=== PATIENT | male | born 1945 | race Two or more races ===

== ENCOUNTER 2025-02-07 16:34 | Emergency (ER) | payer OTHER, MEDICAID ==
[~2025-02-07] VITALS: Ht 167.6 cm; Wt 60.5 kg
--- NOTE | 2025-02-07 17:14 | ED.PDOC ---
GI ASSESSMENT HPI Comments This is a 79 year old male BIB presenting to the ED with chief complaint of abdominal pain. reports that the patient has been experiencing RLQ abdominal pain with associated hemoptysis for the past 2 days. relays patient has a right inguinal hernia, however, they were advised by an urgent care today to come into the ED for further evaluation. Patient denies any SOB, dizziness, N/V/D, chest pain, cough, sore throat, or fever. Chief Complaint: Abdominal Pain Time Seen by MD: 17:12 Reviewed Notes: Nurses Notes, Medications, Allergies Allergies: Coded Allergies: NO KNOWN ALLERGIES (Unverified , 02/07/25) Information Source: Patient, Spouse Mode of Arrival: Ambulatory Timing: Days Duration: Since onset Prehospital treatment: None Quality: Sharp Vomitus: None Stool: Normal Severity: Moderate Recent: None Recent Hx of: None Pain Location: RLQ Modifying Factors: Nothing Associated sign and symptoms: Abdominal Pain Past Medical History PAST MEDICAL HISTORY: Dementia Surgical History: Denies all surgeries Family History Family History: Reviewed,noncontributory to illness Social History Smoker: Non-Smoker Alcohol: Denies ETOH Use Drugs: Denies Drug Use Lives In: Home Constitutional: denies: chills, diaphoresis, fatigue, fever, malaise, sweats, weakness, others EENTM: denies: blurred vision, double vision, ear bleeding, ear discharge, ear drainage, ear pain, ear ringing, eye pain, eye redness, hearing loss, mouth pain, mouth swelling, nasal discharge, nose bleeding, nose congestion, nose pain, photophobia, tearing, throat pain, throat swelling, voice changes, others Respiratory: reports: hemoptysis; denies: cough, orthopnea, SOB at rest, shortness of breath, SOB with excertion, stridor, wheezing, others Cardiovascular: denies: chest pain, dizzy spells, diaphoresis, Dyspnea on exertion, edema, irregular heart beat, left arm pain, lightheadedness, palpitations, PND, syncope, others Gastrointestinal: reports: abdominal pain; denies: abdomen distended, blood streaked bowels, constipated, diarrhea, dysphagia, difficulty swallowing, hematemesis, melena, nausea, poor appetite, poor fluid intake, rectal bleeding, rectal pain, vomiting, others Genitourinary: denies: burning, dysuria, flank pain, frequency, hematuria, incontinence, penile discharge, penile sore, pain, testicle pain, testicle swelling, urgency, others Neurological: denies: dizziness, fainting, headache, left sided numbness, left sided weakness, numbness, paresthesia, pre-existing deficit, right sided numbness, right sided weakness, seizure, speech problems, tingling, tremors, weakness, others Musculoskeletal: denies: back pain, gout, joint pain, joint swelling, muscle pain, muscle stiffness, neck pain, others Integumetry: denies: bruises, change in color, change in hair/nails, dryness, laceration, lesions, lumps, rash, wounds, others Allergic/Immunocompromised: denies: Difficulty Healing, Frequent Infections, Hives, Itching, others Hematologic/Lymphatic: denies: anemia, blood clots, easy bleeding, easy bruising, swollen glands, others Endocrine: denies: excessive hunger, excessive sweating, excessive thirst, excessive urination, flushing, intolerance to cold, intolerance to heat, unexplained weight gain, unexplained weight loss, others Psychiatric: denies: anxiety, bipolar disorder, depression, hopeless, panic disorder, schizophrenia, sleepless, suicidal, others All Other Systems: Reviewed and Negative Physical Exam General Appearance: No Apparent Distress, Normal HEENT: Normal ENT Inspection, Pharynx Normal, TMs Normal Neck: Full Range of Motion, Non-Tender, Normal, Normal Inspection Respiratory: Chest Non-Tender, Lungs Clear, No Accessory Muscle Use, No Respiratory Distress, Normal Breath Sounds Cardiovascular: No Edema, No JVD, No Murmur, No Gallop, Normal Peripheral Pulses, Regular Rate/Rhythm Breast Exam: Deferred Gastrointestinal: No Organomegaly, No Pulsatile Mass, Normal Bowel Sounds, Soft, Tenderness (RLQ abdominal tenderness) Genitalia: Deferred Pelvic: Deferred Rectal: Deferred Extremities: No calf tenderness, Normal capillary refill, Normal inspection, Normal range of motion, Non-tender, No pedal edema Musculoskeletal : Apperance: Normal Neurologic: Alert, 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 Was a procedure done?: No GI differential Dx Differential Diagnosis: Bowel Obstruction, Dysmenorrhea, Gastritis/PUD, Gastroenteritis X-Ray, Labs, Meds, VS Vital Signs Date Time Temp Pulse Resp B/P (MAP) Pulse Ox O2 Delivery O2 Flow Rate FiO2 02/07/25 19:47 98.0 83 14 112/57 (75) 96 98.0 02/07/25 16:41 97.6 66 16 125/54 96 97.6 Lab Test 02/07/25 17:46 Range/Units White Blood Count 7.7 4.4-10.8 10^3/uL Red Blood Count 4.56 4.5-5.90 10^6/uL Hemoglobin 11.5 L 13.5-17.5 g/dL Hematocrit 35.9 L 41.0-53.0 % Mean Corpuscular Volume 78.6 L 80.0-100.0 fL Mean Corpuscular Hemoglobin 25.3 L 28.0-32.0 pg Mean Corpuscular Hemoglobin Concent 32.1 32.0-36.0 g/dL Red Cell Distribution Width 15.8 H 11.8-14.3 % Platelet Count 167 140-450 10^3/uL Mean Platelet Volume 7.9 6.9-10.8 fL Neutrophils (%) (Auto) 80.9 H 37.0-80.0 % Lymphocytes (%) (Auto) 9.6 L 10.0-50.0 % Monocytes (%) (Auto) 8.2 0.0-12.0 % Eosinophils (%) (Auto) 0.6 0.0-7.0 % Basophils (%) (Auto) 0.7 0.0-2.0 % Neutrophils # (Auto) 6.2 1.6-8.6 10 ^3/uL Lymphocytes # (Auto) 0.7 0.4-5.4 10 ^3/uL Monocytes # (Auto) 0.6 0-1.3 10 ^3/uL Eosinophils # (Auto) 0 0-0.8 10 ^3/uL Basophils # (Auto) 0.1 0-0.2 10 ^3/uL Nucleated Red Blood Cells 0.2 % Sodium Level 137 136-145 mmol/L Potassium Level 4.9 3.5-5.1 mmol/L Chloride Level 102 98-107 mmol/L Carbon Dioxide Level 26 20-31 mmol/L Anion Gap 9 5-15 Blood Urea Nitrogen 32 H 9-23 mg/dL Creatinine 1.44 H 0.700-1.30 mg/dL Glomerular Filtration Rate Calc 49 >90 mL/min BUN/Creatinine Ratio 22.2 H 10.0-20.0 Serum Glucose 135 H 74-106 mg/dL Lactic Acid Level 1.1 0.4-2.0 mmol/L Calcium Level 9.1 8.7-10.4 mg/dL Total Bilirubin 0.5 0.2-1.0 mg/dL Aspartate Amino Transferase (AST) 26 13-40 U/L Alanine Aminotransferase (ALT) 11 7-40 U/L Alkaline Phosphatase 59 46-116 U/L Total Protein 8.5 H 5.7-8.2 g/dL Albumin 4.2 3.2-4.8 g/dL Lipase 66 H 12-53 U/L X-Ray, Labs, Meds, VS Comment Imaging was reviewed by this provider, there is no obvious pathological or acute disease process. Pending radiology review Labs were reviewed by this provider, no abnormalities Vital signs reviewed by this provider, clinically stable Time of 1ST Reevaluation: 18:12 Reevaluation 1ST: Unchanged Patient Education/Counseling: Diagnosis, Treatment, Need For Follow Up (Follow up with PCP next available appointment. Return to emergency department if symptoms worsen.) Family Education/Counseling: Diagnosis, Treatment SEPSIS Sepsis Screen Date sepsis recognized/suspect: Feb 07, 2025 Time Sepsis recognized/suspect: 1643 Recent Procedure: No On Antibiotic Therapy: No Respiratory Rate >20: No Heart Rate >90: No Temp<36 C (96.8 F) or >38.3 C: No SBP <90 or MAP <65 mmHG: No New Acute Mental Status Change: No Is the patient on CPAP, BIPAP,: No Physician Orders Electrocardigram (02/07/25 16:47) Urinalysis (02/07/25 17:37) Ct Ab Pel Wo Con-No Oral Or Iv (02/07/25 17:37) Vital Signs Date Time Temp Pulse Resp B/P (MAP) Pulse Ox O2 Delivery O2 Flow Rate FiO2 02/07/25 19:47 98.0 83 14 112/57 (75) 96 98.0 02/07/25 16:41 97.6 66 16 125/54 96 97.6 Laboratory Tests Test 02/07/25 17:46 Lactic Acid Level 1.1 mmol/L (0.4-2.0) White Blood Count 7.7 10^3/uL (4.4-10.8) Departure 1 Departure Time of Disposition: 20:48 Impression: Primary Impression: Non-specific colitis Additional Impressions: Constipation Qualified Codes: K59.01 - Slow transit constipation Right inguinal hernia Disposition: HOME / SELF CARE / HOMELESS Condition: Stable e-Prescriptions Docusate Sodium (Stool Softener) 100 Mg Cap 100 MG PO BID PRN, #30 CAP Prov: RAJANI KWON 02/07/25 Discharged With: Self Critical Care Note Critical Care Time?: No Stability Stability form required: No Heart Score Heart Score: Heart Score Response (Comments) Value History N/A 0 EKG N/A 0 Age N/A 0 Risk Factors N/A 0 Troponin N/A 0 Total 0 I personally scribed for RAJANI KWON ([email or web address]) on 02/07/25 at 17:14. Electronically submitted by Zion Tiwari ([email or web address]). RAJANI KWON Feb 07, 2025 17:14
[2025-02-07 18:12] LABS: Hematocrit 35.9 % (41.0-53.0); Hemoglobin 11.5 g/dL (13.5-17.5); Mean Corpuscular Hemoglobin 25.3 pg (28.0-32.0); Mean Corpuscular Volume 78.6 fL (80.0-100.0); Nucleated Red Blood Cells % 0.2 %
[2025-02-07 18:23] LABS: Alanine Aminotransferase 11 U/L (7-40); Albumin 4.2 g/dL (3.2-4.8); Alkaline Phosphatase 59 U/L (46-116); Anion Gap 9 (5-15); BUN/Creatinine Ratio 22.2 (10.0-20.0); Calcium 9.1 mg/dL (8.7-10.4); Carbon Dioxide 26 mmol/L (20-31); Chloride 102 mmol/L (98-107); Potassium 4.9 mmol/L (3.5-5.1); Sodium 137 mmol/L (136-145)
[2025-02-07 18:24] LABS: Bilirubin, Total 0.5 mg/dL (0.2-1.0)
[2025-02-07 18:25] LABS: Blood Urea Nitrogen 32 mg/dL (9-23); Glucose 135 mg/dL (74-106); Lipase 66 U/L (12-53); Total Protein 8.5 g/dL (5.7-8.2)
--- NOTE | 2025-02-07 18:40 | DVH ---
Exam: CT CT AB PEL WO CON-NO ORAL OR IV History: RLQ pain Comparison Study: None Technique: Multidetector spiral CT of the abdomen was performed from lung bases to pubic symphysis. Imaging was performed without IV contrast. Axial, coronal and sagittal multiplanar reformats were obtained from the axial data set by the technologist. Radiation Dose : 1. Abdomen/Pelvis: CTDIvol 6.28 mGy, DLP 342.16 mGy*cm. Findings: Evaluation of solid organs is limited due to lack of intravenous contrast use. There is extensive centrilobular nodularity with parenchymal opacities notably within the right middle lobe and to a lesser degree within the bilateral lower lobes. There is severe coronary artery calcium. The liver, gallbladder, adrenal glands, and kidneys are within normal limits. The spleen is enlarged measuring 16.2 cm in craniocaudal dimension. The urinary bladder is within normal limits. The prostate is mildly enlarged measuring 5 cm in transverse dimension. The stomach, small bowel, and appendix are within normal limits. There is a moderate colonic stool burden. There is a small right inguinal fat containing hernia. Moderate degenerative changes of the hips bilaterally. Moderate multilevel discogenic and spondylotic degenerative changes within the lumbar spine. Circumferential atherosclerotic calcifications of the abdominal aorta. IMPRESSION: Splenomegaly measuring up to 16 cm Mild prostatomegaly Moderate colonic stool burden Small right Fat containing inguinal hernia Extensive bronchiolitis within the imaged lower lungs worst in the right middle lobe which can be seen with chronic mycobacterial avium infection. Radiation optimization: All CT scans at this facility use at least one of these dose optimization techniques: automated exposure control mA and/or kV adjustment per patient size (includes targeted exams where dose is matched to clinical indication) or iterative reconstruction.
[2025-02-07 19:47] VITALS: TEMP 98
[2025-02-07] MEDS ORDERED: DOCU-80 PO (20:49)
[2025-02-07 20:57] VITALS: BP 125/55; PULSE 81; RESP 18; O2SAT 96
--- NOTE | 2025-02-08 09:02 | ECG ---
[facility] Test Date: 2025-02-07 Test Time: 16:51:38 Pat Name: ROSEMARIE HURTADO Department: Room: Gender: M [employer] W[employer] Operator: : 1945 Requested By: BANDAR MAK Order Number: [id number] Reading MD: Roger Collier Measurements Intervals [place] Rate: 69 P: 56 IA: 176 QRS: 51 QRSD: 82 T: 8 QT: 419 QTc: 449 Interpretive Statements Sinus rhythm Abnormal R-wave progression, early transition Electronically Signed On 02-14-2025 18:42:59 PST by Roger Collier Please click the below link to view image of tracing.
== END 2025-02-07 21:15 | disposition home or self-care (01) ==
LOC: ER 16:34
DX: K52.9 Noninfective gastroenteritis and colitis, unspecified (principal); K59.00 Constipation, unspecified; F03.90 Unspecified dementia, unspecified severity, without behavioral disturbance, psychotic disturbance, mood disturbance, and anxiety
CPT/HCPCS: 36415; 74176; 80053; 83605; 83690; 85025; 93005